=== PATIENT | female | born 1955 | race Caucasian/White ===

== ENCOUNTER → 2018-02-20 | Outpatient (CLI) | payer OTHER ==
[~2018-02-20] MED LIST: ALDACTONE50 MG PO; BIOTIN5 M1 PO; CALCIUM + D SO1 EACH PO; CIPROFLOXACIN500 M1 PO; CLONAZEPAM 0.50.5 M1 PO; EFFEXOR XR37.5 MG PO; FISH OIL + D31 EACH PO; HYDROCODON-ACE1 EAC7 PO; METOCLOPRAMIDE10 MG PO; MULTI VITAMIN1 EACH PO; OMEPRAZOLE 20 M20 M1 PO; SIMVASTATIN20 MG PO; VITAMIN D1000 UNI1 PO; VITAMINC500 PO; ZOFRAN4 MG PO
== END ==
LOC: M.RAD 13:00
DX: Z12.31 Encounter for screening mammogram for malignant neoplasm of breast (principal)

== ENCOUNTER → 2019-02-19 | Outpatient (CLI) | payer OTHER | LOC: M.RAD 09:23 | DX: Z12.31 Encounter for screening mammogram for malignant neoplasm of breast (principal) ==

== ENCOUNTER → 2020-02-03 | Outpatient (CLI) | payer OTHER ==
[2020-02-03 11:19] LABS: TOTAL VOLUME 14 ml
[2020-02-03 11:20] LABS: CLARITY CLOUDY; SOURCE KNEE
[2020-02-03 13:10] LABS: BF RBC 22759 /mm3; TOTAL CELL COUNT 22131 /mm3
[2020-02-03 13:14] LABS: BF LYMPHOCYTES 17 %; BF MONOCYTES 0 %; BF POLYS 80 %; BODY FLUID BANDS 3 %
[2020-02-04 17:07] LABS: BODY FLUID PROTEIN 4.3 g/dL (())
== END ==
LOC: M.LAB 10:11
PROVIDERS: ATTEND Orthopaedic Surgery
DX: M25.562 Pain in left knee (principal)

== ENCOUNTER → 2020-02-10 | Outpatient (CLI) | payer OTHER | LOC: M.RAD 09:42 | PROVIDERS: ATTEND Family Medicine | DX: Z12.31 Encounter for screening mammogram for malignant neoplasm of breast (principal); N64.89 Other specified disorders of breast ==

== ENCOUNTER → 2021-02-15 | Outpatient (CLI) | payer OTHER | LOC: M.RAD 09:50 | PROVIDERS: ATTEND Family Medicine | DX: Z12.31 Encounter for screening mammogram for malignant neoplasm of breast (principal) ==